=== PATIENT | female | born 1985 | race American Indian/Alaskan Native ===

== ENCOUNTER 2016-12-24 20:23 | Emergency (ER) | payer MEDICAID ==
[2016-12-24 20:37] VITALS: BP 134/82
--- NOTE | 2016-12-26 01:07 | ED Elopement Review ---
ED Pt Elopement review - Call Back decision Pt Call Back Decision: Pt to F/U with PMD
== END 2016-12-24 22:30 | disposition left against medical advice (07) ==
LOC: ED 20:23
DX: R06.02 Shortness of breath (principal); R05 Cough; Z53.21 Procedure and treatment not carried out due to patient leaving prior to being seen by health care provider
CPT/HCPCS: 93005; 93010